=== PATIENT | male | born 1995 | race Caucasian/White ===

== ENCOUNTER 2020-03-15 00:53 | Emergency (ER) | payer MEDICAID ==
[~2020-03-15] VITALS: Ht 170.2 cm; Wt 78.6 kg
[2020-03-15 00:58] VITALS: Ht 170.2 cm; Wt 78.6 kg
[2020-03-15] MEDS ORDERED: ALBUTEROL SULF8.5 GM INH (02:14)
[2020-03-15 02:45] VITALS: BP 122/69
== END 2020-03-15 02:46 | disposition home or self-care (01) ==
LOC: D.ER 00:53
DX: J45.909 Unspecified asthma, uncomplicated (principal)

== ENCOUNTER 2020-04-03 03:26 | Emergency (ER) | payer MEDICAID ==
[~2020-04-03] VITALS: Ht 170.2 cm; Wt 83.2 kg
[~2020-04-03 03:26] MED LIST: ALBUTEROL SULF8.5 GM INH
[2020-04-03 03:31] VITALS: Ht 170.2 cm; Wt 83.2 kg
[2020-04-03 03:53] LABS: BASOPHILS 0.3 % (0-2); EOSINOPHILS 4.4 % (0-7); HEMATOCRIT 48.8 % (42.0-54.0); IMMATURE GRANULOCYTES 0.3 % (0-5); LYMPHOCYTES 13.1 % (15-50); MCH 30.6 pg (26.0-34.0); MCHC 34.8 g/dL (31.0-37.0); MCV 87.8 fL (80.0-100.0); MEAN PLATELET VOLUME 9.9 fL (7.4-10.4); MONOCYTES 7.5 % (2-11); NEUTROPHILS 74.4 % (40-80); PLATELET COUNT 214 10x3/uL (130-400); RBC 5.56 10x6/uL (4.20-6.10); RDW 12.8 % (11.5-14.5); WBC 14.2 10x3/uL (4.8-10.8)
[2020-04-03 03:56] LABS: CALC OSMOLALITY 278 mosm/kg (275-300); CALCIUM 8.8 mg/dL (8.5-10.1); CARBON DIOXIDE 28.3 mmol/L (21.0-32.0); CHLORIDE - SERUM 103 mmol/L (98-107); GLUCOSE 108 mg/dL (74-106); POTASSIUM - SERUM 4.5 mmol/L (3.5-5.1); SODIUM 138 mmol/L (136-145); UREA NITROGEN 18 mg/dL (7-18); eGFR NON AFRICAN AMERICAN > 90 mL/min (90-120)
[2020-04-03 03:59] LABS: APTT 28.6 SECONDS (22.8-39.4); INR 0.97 (0.85-1.17); PROTIME 12.9 SECONDS (11.6-15.0)
[2020-04-03 04:13] LABS: ALBUMIN 4.1 g/dL (3.4-5.0); ALKALINE PHOSPHATASE 66 U/L (30-120); ALT (SGPT) 58 U/L (10-68); BILIRUBIN - TOTAL 0.83 mg/dL (0.2-1.3); CKMB 0.9 U/L (0.0-3.6); CREATINE KINASE 107 UL (21-232); PRO BNP 58 pg/mL (0-125); PROTEIN - SERUM 7.8 g/dL (6.4-8.2)
[2020-04-03 04:17] LABS: TROPONIN-I < 0.017 ng/mL (0.000-0.060)
[2020-04-03] MEDS ORDERED: PREDNISONE20 MG PO (06:15)
[2020-04-03 06:28] VITALS: BP 133/88
== END 2020-04-03 06:29 | disposition home or self-care (01) ==
LOC: D.ER 03:26
PROVIDERS: Family Medicine
DX: J45.901 Unspecified asthma with (acute) exacerbation (principal)